=== PATIENT | male | born 1960 | race Caucasian/White ===

== ENCOUNTER 2017-06-03 09:21 | Outpatient (CLI) | payer BC ==
--- NOTE | 2017-06-03 10:23 | RAD ---
TWO VIEWS CHEST: Date: 06-03-17 Comparison: None. History: Prostate cancer. FINDINGS: No pneumothorax, pleural fluid, focal consolidation or alveolar edema. Heart and mediastinal contours unremarkable. IMPRESSION: No acute findings. POS: [facility]
--- NOTE | 2017-06-03 12:27 | EKG ---
Test Reason : PREOP Blood Pressure : / mmHG Vent. Rate : 053 BPM Atrial Rate : 053 BPM P-R Int : 166 ms QRS Dur : 084 ms QT Int : 436 ms P-R-T Axes : 012 017 016 degrees QTc Int : 409 ms Sinus bradycardia Otherwise normal ECG Confirmed by DR. Harrison VALENCIA ([id number]) on 06/03/2017 12:26:38 PM Referred By: ALIYAH Confirmed By:DR. Harrison VALENCIA
== END 2017-06-03 09:22 | disposition home or self-care (01) ==
LOC: EKG 09:21
PROVIDERS: ATTEND Urology
DX: C61 Malignant neoplasm of prostate (principal)
CPT/HCPCS: 36415; 71046; 80048; 81001; 85025; 85610; 85730; 87086; 93005; 93010

== ENCOUNTER 2018-06-28 14:31 | Outpatient (CLI) | payer BC ==
--- NOTE | 2018-06-28 16:34 | MRI ---
MRI OF THE PELVIS/PROSTATE WITHOUT AND WITH CONTRAST: 06/28/18 COMPARISON: None. HISTORY: Prostate cancer. Patient had a prostate biopsy done last year. TECHNIQUE: Multiplanar and multisequence MR images were obtained of the pelvis/prostate without and with contras t. FINDINGS: The majority of the prostate has been removed. There is a central defect. The seminal vesicles are st ill intact and the neural vascular bundles appear intact. There is only a small amount of residual pr ostate tissue with seminal vesicles, off of the prostate. No restricted diffusion is seen in the prostatic bed/residual prostate. No abnormal low T2 signal les ion is identified. No pelvic adenopathy is seen. No marrow signal abnormality is present. IMPRESSION: There is minimal residual prostate tissue remaining. There is no evidence of metastatic disease or re sidual disease in the pelvis. POS: [facility]
== END 2018-06-28 14:32 | disposition home or self-care (01) ==
LOC: TBSIIMAG 14:31
PROVIDERS: ATTEND Urology
DX: C61 Malignant neoplasm of prostate (principal)
CPT/HCPCS: 72197; 82565